=== PATIENT | female | born 1960 | race Caucasian/White ===

== ENCOUNTER 2018-07-12 17:33 | Emergency (ER) | payer OTHER ==
[~2018-07-12] VITALS: Ht 160 cm; Wt 73.7 kg
[2018-07-12 19:02] VITALS: BP 128/76
== END 2018-07-12 19:02 | disposition home or self-care (01) ==
LOC: ED 17:33
DX: L02.511 Cutaneous abscess of right hand (principal); E11.9 Type 2 diabetes mellitus without complications; W26.8XXA Contact with other sharp object(s), not elsewhere classified, initial encounter; Y93.89 Activity, other specified; Y92.89 Other specified places as the place of occurrence of the external cause; Y99.8 Other external cause status
CPT/HCPCS: 90715

== ENCOUNTER 2019-02-01 00:52 | Emergency (ER) | payer OTHER ==
[~2019-02-01] VITALS: Ht 162.6 cm; Wt 75.7 kg
[2019-02-01 00:56] VITALS: Ht 162.6 cm; Wt 75.7 kg
[2019-02-01 04:01] VITALS: BP 129/67
== END 2019-02-01 04:01 | disposition home or self-care (01) ==
LOC: ED 00:52
DX: M25.551 Pain in right hip (principal); M79.604 Pain in right leg; E11.9 Type 2 diabetes mellitus without complications; E03.9 Hypothyroidism, unspecified
CPT/HCPCS: J1885

== ENCOUNTER 2019-04-07 20:52 | Emergency (ER) | payer OTHER ==
[~2019-04-07] VITALS: Ht 162.6 cm; Wt 74.8 kg
[2019-04-07 20:52] VITALS: Ht 162.6 cm; Wt 74.8 kg
[2019-04-07 22:20] VITALS: BP 135/70
== END 2019-04-07 22:20 | disposition home or self-care (01) ==
LOC: ED 20:52
DX: M54.41 Lumbago with sciatica, right side (principal); E11.9 Type 2 diabetes mellitus without complications; E03.9 Hypothyroidism, unspecified
CPT/HCPCS: J1885; J2060; J2405; J3010; Q0092